=== PATIENT | female | born 1965 | race Caucasian/White ===

== ENCOUNTER 2018-09-26 06:16 | Day surgery (SDC) | payer OTHER ==
[2018-09-25 10:04] VITALS: BMI 25.9
[2018-09-26] MEDS ORDERED: EPINEPHrine 1:1,000 1 MG/1 ML - 30ML VIAL (INJECTION) ONE (07:12)
[2018-09-26] MEDS ORDERED: BUPIVACAINE HCL/PF 2.5 MG/ML - 30 ML VIAL IJ ONE (07:12)
[2018-09-26] MEDS ORDERED: MIDAZOLAM HCL 2 MG/2 ML SINGLE DOSE VIAL ONE (07:22)
[2018-09-26] MEDS ORDERED: SUCCINYLCHOLINE CHLORIDE 200 MG/10 ML VIAL ONE (07:22)
[2018-09-26] MEDS ORDERED: PROPOFOL 20 ML ONE ×2 (07:22)
[2018-09-26] MEDS ORDERED: DEXAMETHASONE SOD PHOSPHATE 4 MG/1 ML VIAL ONE (07:24)
[2018-09-26] MEDS ORDERED: KETOROLAC TROMETHAMINE 30 MG/1 ML VIAL ONE (07:24)
[2018-09-26] MEDS ORDERED: LIDOCAINE HCL 2% JELLY (5 ML/TUBE) ONE (07:24)
[2018-09-26] MEDS ORDERED: ceFAZolin SODIUM 1 GM VIAL ONE (07:24)
[2018-09-26] MEDS ORDERED: ONDANSETRON 4 MG/2 ML VIAL ONE (07:24)
[2018-09-26] MEDS ORDERED: ePHEDrine SULFATE 50 MG/1 ML AMPULE ONE (08:12)
[2018-09-26] MEDS ORDERED: BUPIVACAINE HCL 0.25% 125 MG/50 ML VIAL NR ONE (08:40)
[2018-09-26] MEDS ORDERED: ONDANSETRON 4 MG/2 ML VIAL IVPUSH PRN (08:57)
[2018-09-26] MEDS ORDERED: PROMETHAZINE HCL 25 MG/1 ML VIAL IVPUSH PRN (08:57)
[2018-09-26] MEDS ORDERED: oxyCODONE HCL 5 MG TABLET PO PRN ×2 (08:57)
[2018-09-26 10:06] VITALS: TEMP 97.5
[2018-09-26 11:42] VITALS: BP 126/66; PULSE 64
--- NOTE | 2018-09-28 21:53 | OP ---
DATE OF OPERATION: 09/26/2018 SURGEON: Baldomero Adan MD ASSOCIATE VETERINARIAN: PHILIPPE Gandara PREOPERATIVE DIAGNOSIS: 1. Left knee mediolateral meniscal tear. 2. Left knee cartilage injury. 3. Left knee synovitis. POSTOPERATIVE DIAGNOSIS: 1. Left knee mediolateral meniscal tear. 2. Left knee cartilage injury. 3. Left knee synovitis. PROCEDURE: 1. Left knee arthroscopy with partial meniscectomy of lateral meniscus, CPT code 68148. 2. Left knee arthroscopy with chondroplasty, CPT code 40334. 3. Left knee arthroscopy with synovectomy, CPT code 01246. FINDINGS: 1. A medial meniscus, body, and posterior horn tear with a central portion from the body to the posterior portion of the body and entry of the posterior horn, the inner one-third portion. 2. Lateral meniscus posterior horn tear. 3. Minor grade 1-2 cartilage injury of anteromedial femoral condyle and tibial plateau. 4. ACL and PCL intact. 5. Minor grade 2 cartilage injury of anterolateral femoral condyle. 6. Grade 2 cartilage injury of the patella and patellofemoral trochlea. PROCEDURE: Informed consent was obtained. The patient came to the operating room, where the lower extremity was prepped and draped in a sterile fashion. A tourniquet was placed on the upper thigh, but not inflated. Using standard arthroscopic technique, a lateral incision and portal was made to allow for introduction of the camera into the suprapatellar bursa. This was then taken to the medial joint line, where under direct visualization, a medial incision and portal was made. Excessive synovium noted in the medial, lateral and patellofemoral and notch area was removed by an upbiter, shaver and Bovie cautery. This was found to bring in inflammatory tissue into the joint surface, a source of pain and dysfunction. Probing of the medial and lateral meniscus found tears, as described in the findings. These were removed with the upbiter and shaver and taken back to a stable rim. Grade 2 to 3 degenerative changes were treated with a chondroplasty, removing all flaking surfaces with low-setting Bovie along the periphery to prevent further flaking. Grade 4 changes, as noted, were treated with an abrasoplasty, creating a bleeding surface at the bone/cartilage interface. Aggressive debridement with shaver/mariam created bleeding surface. Micro fracture also done when indicated in findings. All areas of the knee were once again reexamined. The knee was then drained and a single suture was placed in all portals. A sterile dressing was placed and the patient was transferred to the recovery room without complication. The PA listed above was present and assisted at surgery. Their presence was absolutely medically necessary for the completion of the procedure. They helped hold the arthroscopy, pass instruments (and implants when indicated) and the procedure could not have been completed without their assistance. BALDOMERO ADAN M.D. [id number]
--- NOTE | 2018-09-30 13:56 | PATH ---
Surgical Pathology Report Patient Name: RENAY FOREMAN Med. Rec. #: [id number] /Age/Gender: 1965 (Age: 53) / F Account: [id number] Location: [facility] Taken: 09/26/2018 Received: 09/26/2018 Reported: 09/30/2018 Physicians: Baldomero Ruiz M.D. Specimen(s) Received LEFT KNEE Clinical History Left knee pain Final Diagnosis KNEE SHAVINGS, LEFT, ARTHROSCOPY WITH DEBRIDEMENT: FRAGMENTS OF CARTILAGE, DENSE FIBROCONNECTIVE TISSUE, ADIPOSE TISSUE, AND REACTIVE SYNOVIUM. Electronically Signed Radhika aVllejo M.D. Gross Description Received in formalin, labeled "left knee shavings," is a 4.0 x 3.0 x 0.4 cm. aggregate of velasquez-yellow soft tissue fragments. A energy conservation representative portion is submitted in one cassette. /09/29/201809/29/2018
== END 2018-09-26 10:40 | disposition home or self-care (01) ==
LOC: FASU 06:16
PROVIDERS: ATTEND Orthopaedic Surgery
PROC: 0SBD4ZZ Excision of Left Knee Joint, Percutaneous Endoscopic Approach (ICD-10-PCS; 2018-09-26)
PROC: 0SBD4ZZ Excision of Left Knee Joint, Percutaneous Endoscopic Approach (ICD-10-PCS; 2018-09-26)
PROC: 0SBD4ZZ Excision of Left Knee Joint, Percutaneous Endoscopic Approach (ICD-10-PCS; principal; 2018-09-26 07:48)
DX: S83.242A Other tear of medial meniscus, current injury, left knee, initial encounter (principal); S83.282A Other tear of lateral meniscus, current injury, left knee, initial encounter; S83.8X2A Sprain of other specified parts of left knee, initial encounter; M65.862 Other synovitis and tenosynovitis, left lower leg; X58.XXXA Exposure to other specified factors, initial encounter; Y93.9 Activity, unspecified; Y92.9 Unspecified place or not applicable
CPT/HCPCS: 88304-TC; 94760